=== PATIENT | male | born 1965 | race Caucasian/White ===

== ENCOUNTER 2017-06-13 12:01 | Emergency (ER) | payer BC, MEDICARE ==
[2017-06-13 12:42] VITALS: BP 128/85
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
--- NOTE | 2017-06-13 13:25 | RAD ---
INDICATION: Painful focus at the tibial tuberosity COMPARISON: None TECHNIQUE: 4 view radiograph of the left knee. FINDINGS: On the lateral view the left knee there is appearance of mild convexity overlying the tibial tuberosity. The visualized bones are well-corticated and properly aligned. The joint spaces are properly maintained. There is no radiographic evidence of joint effusion. There is no acute fracture, dislocation or other focal bony abnormality. IMPRESSION: Mild soft tissue convexity overlying the tibial tuberosity.
== END 2017-06-13 14:03 | disposition home or self-care (01) ==
LOC: UCCORT 12:01
DX: M25.562 Pain in left knee (principal); M22.2X2 Patellofemoral disorders, left knee; E78.5 Hyperlipidemia, unspecified; Z90.81 Acquired absence of spleen; Z98.41 Cataract extraction status, right eye; F17.210 Nicotine dependence, cigarettes, uncomplicated
CPT/HCPCS: 99213; G0463